=== PATIENT | male | born 1955 | race Caucasian/White ===

== ENCOUNTER 2017-10-15 07:36 | Day surgery (SDC) | payer OTHER ==
[~2017-10-15 07:36] MED LIST: Aspir-Trin325 MG; BP MED; DIAZ5 PO; LISI20; LOVA40; METF500; OXYACE5T PO; Omeprazole20 M1; PRED20 PO
== END 2017-10-15 07:45 | disposition home or self-care (01) ==
LOC: ORSCSDS 07:36
DX: Z86.010 Personal history of colon polyps (principal); Z53.9 Procedure and treatment not carried out, unspecified reason
CPT/HCPCS: J1200

== ENCOUNTER 2021-07-26 07:20 | Day surgery (SDC) | payer OTHER ==
[~2021-07-26] VITALS: Ht 177.8 cm; Wt 99.4 kg
--- NOTE | 2021-07-26 09:59 | NUR ---
07/26/21 0959 Sadia Bartholomew 4ML ORISE USED TO ELEVATE TRANSVERSE POLYP
== END 2021-07-26 10:27 | disposition home or self-care (01) ==
LOC: ORSCSDS 07:20
PROVIDERS: Internal Medicine Gastroenterology
PROC: 0DBL8ZX Excision of Transverse Colon, Via Natural or Artificial Opening Endoscopic, Diagnostic (ICD-10-PCS; principal; 2021-07-26 08:30)
PROC: 0DB78ZX Excision of Stomach, Pylorus, Via Natural or Artificial Opening Endoscopic, Diagnostic (ICD-10-PCS; principal; 2021-07-26 08:30)
PROC: 0DB98ZX Excision of Duodenum, Via Natural or Artificial Opening Endoscopic, Diagnostic (ICD-10-PCS; principal; 2021-07-26 08:30)
DX: R10.13 Epigastric pain (principal); K75.81 Nonalcoholic steatohepatitis (NASH); Z12.11 Encounter for screening for malignant neoplasm of colon; Z86.010 Personal history of colon polyps; D12.3 Benign neoplasm of transverse colon; I10 Essential (primary) hypertension; E78.5 Hyperlipidemia, unspecified; Z79.899 Other long term (current) drug therapy; Z87.891 Personal history of nicotine dependence; E11.42 Type 2 diabetes mellitus with diabetic polyneuropathy; Z79.84 Long term (current) use of oral hypoglycemic drugs
CPT/HCPCS: 82947; 88305; 88342; J2704; J7120

== ENCOUNTER 2022-01-31 08:14 | Day surgery (SDC) | payer OTHER ==
[~2022-01-31] VITALS: Ht 177.8 cm; Wt 98.0 kg
--- NOTE | 2022-01-31 10:57 | NUR ---
01/31/22 1057 KEDAR BOLTON PT TRANSFER ENDO2 INTO ENDO1: SCOPE OUT 1ST @ 0946 PT AWAKE 0948, TRANSVER TO ENDO1 AND SCOPE IN @ 0959 COLOR ORANGE/WHITE. END NOTE
== END 2022-01-31 10:52 | disposition home or self-care (01) ==
LOC: ORSCSDS 08:14
PROVIDERS: Internal Medicine Gastroenterology
PROC: 0DBH8ZX Excision of Cecum, Via Natural or Artificial Opening Endoscopic, Diagnostic (ICD-10-PCS; principal; 2022-01-31 09:30)
PROC: 0DBL8ZX Excision of Transverse Colon, Via Natural or Artificial Opening Endoscopic, Diagnostic (ICD-10-PCS; principal; 2022-01-31 09:30)
DX: Z86.010 Personal history of colon polyps (principal); K63.5 Polyp of colon; K57.30 Diverticulosis of large intestine without perforation or abscess without bleeding; K64.8 Other hemorrhoids; E11.42 Type 2 diabetes mellitus with diabetic polyneuropathy; I10 Essential (primary) hypertension; E78.00 Pure hypercholesterolemia, unspecified; E78.5 Hyperlipidemia, unspecified; Z79.899 Other long term (current) drug therapy; Z79.84 Long term (current) use of oral hypoglycemic drugs; Z87.891 Personal history of nicotine dependence; K75.81 Nonalcoholic steatohepatitis (NASH)
CPT/HCPCS: 82947; 88305; J2704; J7120

== ENCOUNTER 2022-09-12 09:02 | Day surgery (SDC) | payer OTHER ==
[~2022-09-12] VITALS: Ht 177.8 cm; Wt 99.8 kg
[~2022-09-12 09:02] MED LIST changes: +Fenofibrate54 MG PO; -LISI20; +LISI20 PO; -LOVA40; +LOVA40 PO; -METF500; +METF500 PO; +OMEP20ER PO; -Omeprazole20 M1
--- NOTE | 2022-09-12 10:44 | NUR ---
Ambulatory in Day Surgery. Pre-Op teaching done. Pt verbalizes understanding. Patient confirms NPO status and agrees with scheduled surgery. Patient reports completing Chlorhexadine shower X2 prior to admission to hospital. Lungs clear T/O to Auscultation. Patient States Post-Procedure ride home has been arranged.
--- NOTE | 2022-09-12 12:55 | NUR ---
DISCHARGE PT A&OX4, VSS/RA, MART[place] PO, DENIES PAIN, DRESSED SELF, ARRANGED FOR SISTER DRIVER'S LICENSE REVIEWING OFFICER. DC INS PROVIDED. PT REP UNDERSTANDING THOSE INSTRUCTIONS INCLUDING FU WITH SURGEON, OK TO SHOWER TOMORROW AND REMOVE GAUZE/TAPE-LEAVING STERISTRIPS IN PLACE, NO LIFTING >10 LBS. IV DC'D. LEFT VIA WC WITH RN TO GO HOME WITH SISTER EMBOSSING MACHINE OPERATOR, WITH ALL PERSONAL POSSESSIONS INCLUDING DC PACKET AND 1 adicate timeadsCO SCRIPT.
== END 2022-09-12 12:50 | disposition home or self-care (01) ==
LOC: ORSCMMR 09:02 → ORD 10:45 → ORSCMMR 10:45
PROVIDERS: Surgery
PROC: 0WQF0ZZ Repair Abdominal Wall, Open Approach (ICD-10-PCS; principal; 2022-09-12 10:45)
DX: K42.9 Umbilical hernia without obstruction or gangrene (principal); I10 Essential (primary) hypertension; E78.5 Hyperlipidemia, unspecified; E11.9 Type 2 diabetes mellitus without complications; Z87.891 Personal history of nicotine dependence; K21.9 Gastro-esophageal reflux disease without esophagitis; K75.81 Nonalcoholic steatohepatitis (NASH); Z79.84 Long term (current) use of oral hypoglycemic drugs; Z79.899 Other long term (current) drug therapy
CPT/HCPCS: 82947; J0690; J1100; J2250; J2405; J2704; J3010; J7120

== ENCOUNTER → 2024-07-26 | Outpatient (CLI) | payer OTHER | LOC: LAB 11:55 → LAB SHORT 11:55 | DX: D49.0 Neoplasm of unspecified behavior of digestive system (principal) | CPT/HCPCS: 88173 ==

== ENCOUNTER 2024-09-19 10:39 | Day surgery (SDC) | payer OTHER ==
[~2024-09-19] VITALS: Ht 177.8 cm; Wt 96.1 kg
[~2024-09-19 10:39] MED LIST changes: +Lactated Ringer's 1,000 ML IV ONE
--- NOTE | 2024-09-19 12:26 | NUR ---
09/19/24 1226 RALPH ZELAYA checked on patient, OR IS RUNNING BEHIND ON PRIOR CASE. PT HAS CALL LIGHT AT BEDSIDE. APPEARS TO BE SLEEPING. WILL CONT TO MONITOR.
[2024-09-19] MEDS ORDERED: EPINEPhrine HCl 1 MG/ML 1ML Amp ONE (13:33)
[2024-09-19] MEDS ORDERED: FentaNYL Citrate 50 MCG/ML 2 ML Injection ONE (13:47)
[2024-09-19] MEDS ORDERED: propofoL 20 ML IV ONE (13:47)
[2024-09-19] MEDS ORDERED: propofoL 100 ML IV ONE (13:50)
[2024-09-19] MEDS ORDERED: SuccINYLCHOLINE Chloride 100 MG/5 ML 5MLSYR ONE (14:02)
[2024-09-19] MEDS ORDERED: Phenylephrine HCl 100 MCG/ML-NS 10MLSYR (1MG/10ML) ONE (14:02)
[2024-09-19] MEDS ORDERED: Dexamethasone Sod Phos 10 MG/ML 1ML VIAL ONE (14:02)
[2024-09-19] MEDS ORDERED: Ondansetron HCl 2 MG / ML 2ML Vial ONE (14:02)
[2024-09-19] MEDS ORDERED: Artificial Tear Opth Oint 3.5 GM ONE (14:03)
[2024-09-19] MEDS ORDERED: Glycopyrrolate 0.2 MG/ML 5ML VIAL ONE (14:03)
[2024-09-19] MEDS ORDERED: Sodium Chloride 0.9% Inj 10 ML Vial INJ ONE (14:17)
[2024-09-19] MEDS ORDERED: OxyCODONE HCL 5 MG TAB ONE (16:45)
[2024-09-19 16:50] VITALS: BP 150/64
== END 2024-09-19 17:11 | disposition home or self-care (01) ==
LOC: ORSCSDS 10:39
PROVIDERS: Otolaryngology
PROC: 0CB80ZZ Excision of Right Parotid Gland, Open Approach (ICD-10-PCS; principal; 2024-09-19 12:15)
DX: D11.0 Benign neoplasm of parotid gland (principal); D36.0 Benign neoplasm of lymph nodes; I10 Essential (primary) hypertension; E11.9 Type 2 diabetes mellitus without complications; G47.33 Obstructive sleep apnea (adult) (pediatric); Z79.84 Long term (current) use of oral hypoglycemic drugs; Z79.899 Other long term (current) drug therapy
CPT/HCPCS: 82947; 88307; A9270; J0171; J0330; J1100; J2371; J2405; J2704; J3010